=== PATIENT | male | born 1990 | race Caucasian/White ===

== ENCOUNTER 2016-05-08 17:07 | Observation (INO) | payer OTHER ==
[2016-05-08 17:36] VITALS: RESP 16; O2SAT 99
--- NOTE | 2016-05-08 18:32 | ED PDOC ---
HPI: Psych/Substance Abuse Time Seen by Provider: 05/08/16 17:30 Chief Complaint (Nursing): Substance Abuse Chief Complaint (Provider): Substance abuse History Per: Patient History/Exam Limitations: no limitations Onset/Duration Of Symptoms: Mins Current Symptoms Are (Timing): Still Present Suicide/Self Injury Attempted (Context): None Modifying Factor(s): Narcotics Severity: Severe Associated Symptoms: denies: Suicidal Thoughts, Suicidal Plan Additional History Per: Patient Additional Complaint(s): The pt is a 25yo male with PMHx of depression, substance abuse, presents to the ED for evaluation s/p ingestion percocet and heroin. Pt reports he is a recovering heroin addict, states was 4 months clear, and while taking a tab of percocet today, realized it was laced with heroin. Pt reports he "tasted it and kept going." He denies any suicidal or homicidal ideation. pt denies use of other drugs today. At present, offers no additional medical complaints. Past Medical History Reviewed: Historical Data, Nursing Documentation, Vital Signs Vital Signs: Last Vital Signs Temp 97.8 F 05/08/16 17:33 Pulse 101 H 05/08/16 17:33 Resp 16 05/08/16 17:33 BP 117/61 05/08/16 17:33 Pulse Ox 99 05/08/16 17:33 - Medical History PMH: No Chronic Diseases - Surgical History Surgical History: No Surg Hx - Family History Family History: States: Unknown Family Hx - Living Arrangements Living Arrangements: With Family (with aunt) - Social History Drugs: Opiates, Prescription medications (percocet) - Home Medications Home Medications: Ambulatory Orders Medication Instructions Recorded No Known Home Med 05/08/16 - Allergies Allergies/Adverse Reactions: Allergies Allergy/AdvReac Type Severity Reaction Status Date / Time No Known Allergies Allergy Verified 05/08/16 17:33 Review of Systems ROS Statement: Except As Marked, All Systems Reviewed And Found Negative Psych: Positive for: Other (heroin and percocet use). Negative for: Suicidal ideation Physical Exam - Reviewed Nursing Documentation Reviewed: Yes Vital Signs Reviewed: Yes - Physical Exam Appears: Positive for: Well, Non-toxic, No Acute Distress (pt somnolent at times and awke at other times) Head Exam: Positive for: ATRAUMATIC, NORMAL INSPECTION, NORMOCEPHALIC Skin: Positive for: Normal Color Eye Exam: Positive for: Other (pupils pinpoint) Cardiovascular/Chest: Positive for: Regular Rate, Rhythm Respiratory: Positive for: Normal Breath Sounds Gastrointestinal/Abdominal: Positive for: Normal Exam Neurologic/Psych: Positive for: Alert, Oriented - Laboratory Results Result Diagrams: 05/08/16 19:25 05/08/16 19:25 - ECG O2 Sat by Pulse Oximetry: 99 (RA) Pulse Ox Interpretation: Normal Medical Decision Making Medical Decision Making: Time: 1809 Impression: Substance abuse Plan: -- CXR -- CBC -- Drug screen -- BMP -- Pt to be placed under observation, see ED OBS note for further care. Scribe Attestation: Documented by Inna Thompson acting as a scribe for Dean Walls MD. Provider Attestation: All medical record entries made by the Scribe were at my direction and personally dictated by me. I have reviewed the chart and agree that the record accurately reflects my personal performance of the history, physical exam, medical decision making, and the department course for this patient. I have also personally directed, reviewed, and agree with the discharge instructions and disposition. ED OBSERVATION Date of observation admission: 05/08/16 Time of observation admission: 18:25 - Observation admission statement Patient is being placed in observation because:: Pt under influence - Goals of Observation Goals of observation are:: Awaiting clinical sobriety - Progress Note Progress Note: 05/08/16 18:40 Nurse to call poison control. 05/08/16 19:03 Informed by poison control to give fluids and electrolytes. 05/08/16 19:23 Pt to be signed out to Dr. Chao. Disposition - Clinical Impression Clinical Impression: Opiate use - Patient ED Disposition Is Patient to be Admitted: No Counseled Patient/Family Regarding: Studies Performed, Diagnosis - Disposition Disposition: Transfer of Care Disposition Time: 18:25 Condition: STABLE Patient Signed Over To: Osiel Chao Handoff Comments: pending sobriety
[2016-05-08] MEDS: Sodium Chloride 0.9% 1,000 ML IV SCH ×4 (19:20→22:19)
--- NOTE | 2016-05-08 19:28 | ED PDOC ---
- Laboratory Results Result Diagrams: 05/08/16 19:25 05/08/16 19:25 - ECG O2 Sat by Pulse Oximetry: 99 (RA) Pulse Ox Interpretation: Normal Medical Decision Making Medical Decision Making: Receiving sign out: Patient signed out to me by Dr. Walls pending labs and clinical sobriety. Scribe Attestation: Documented by Inna Thompson acting as a scribe for Osiel Chao MD. Provider Attestation: All medical record entries made by the Scribe were at my direction and personally dictated by me. I have reviewed the chart and agree that the record accurately reflects my personal performance of the history, physical exam, medical decision making, and the department course for this patient. I have also personally directed, reviewed, and agree with the discharge instructions and disposition. Disposition - Clinical Impression Clinical Impression: Opiate use - POA Present On Arrival: None - Disposition Disposition: Routine/Home Disposition Time: 18:25 Condition: STABLE ED OBSERVATION Date of observation admission: 05/08/16 - Progress Note Progress Note: 05/08/16 19:09 Pt signed out to me by Dr. Walls. 05/08/16 21:09 Pt resting in room, vitals stable. 05/08/16 22:35 Pt awake, alert and oriented with steady gait. Stable for d/c home.
[2016-05-08 19:43] LABS: BASO # 0.1 K/uL (0.0-0.2); BASO % 0.5 % (0.0-2.0); HEMATOCRIT 44.9 % (35.0-51.0); LYMPH # 1.2 K/uL (1.0-4.3); LYMPH % 11.1 % (20.0-40.0); MEAN CELL VOLUME 90.1 fl (80.0-94.0); MEAN CORPUSCULAR HGB CONC 33.2 g/dL (33.0-37.0); MEAN PLATELET VOLUME 8.4 fl (7.2-11.7); MONO % 9.1 % (0.0-10.0); NEUT # 8.8 K/uL (1.8-7.0); NEUT % 79.3 % (50.0-75.0); NRBC % 0.5 % (0.0-0.0); RED CELL DISTRIBUTION WIDTH 13.9 % (11.5-14.5); WHITE BLOOD COUNT 11.1 K/uL (4.8-10.8)
[2016-05-08 19:46] LABS: ALCOHOL SERUM < 10 mg/dl (0-10); BLOOD UREA NITROGEN 21 mg/dl (9-20); CALCIUM 9.9 mg/dL (8.4-10.2); CARBON DIOXIDE 27 mmol/L (22-30); CHLORIDE 98 mmol/L (98-107); GFR AFRICAN-AMERICAN > 60; GLUCOSE,RANDOM 95 mg/dL (75-110); POTASSIUM 4.8 MMOL/L (3.6-5.0); SODIUM 137 mmol/l (132-148)
[2016-05-08 22:51] VITALS: BP 125/80; PULSE 75; TEMP 97.9
--- NOTE | 2016-05-12 17:10 | CARD ---
APPROVED REPORT EKG Measurement Heart [id number] <Conclusion> Normal sinus rhythm Possible Left atrial enlargement Borderline ECG
== END 2016-05-08 22:42 | disposition home or self-care (01) ==
LOC: H.ER 17:07 → H.EROBSV 18:25
PROVIDERS: ADMIT Emergency Medicine; ATTEND Emergency Medicine
DX: F11.10 Opioid abuse, uncomplicated (principal)